=== PATIENT | female | born 1990 | race Caucasian/White ===

== ENCOUNTER 2024-01-19 07:30 | Emergency (ER) | payer SELFPAY ==
[2024-01-19 07:36] VITALS: BP 140/92; PULSE 98; TEMP 36.6; O2SAT 97; BMI 35.7
--- NOTE | 2024-01-19 07:44 | XR_ITS ---
[facility] [id number] Patient Name: MARIEL NEWMAN MRN: [id number] date: 1990 Sex: F Assigned Patient Location: ED.MAIN Current Patient Location: ED.MAIN Accession/Order Number: [id number] Exam Date: 01/19/2024 08:11 Report Date: 01/19/2024 08:42 At the request of: YAQUELIN BARRIENTOS Procedure: XR tibia fibula RT 2V EXAM: XR tibia fibula RT 2V HISTORY: Right lower leg pain; felt a popping sensation and developed calf pain stepping onto a sidewalk. COMPARISON: None. TECHNIQUE: 2 PA and 2 lateral views of the right tibia/fibula performed. FINDINGS: The bony alignment and mineralization are within normal limits. There is no fracture. The knee joint is unremarkable. There is a small enthesophyte at the calcaneal attachment of the Achilles tendon. The ankle joint is otherwise unremarkable. There is soft tissue prominence along the posterior aspect of the proximal right lower leg. Correlate with clinical findings. XR/XR tibia fibula RT 2V IMPRESSION: There is no acute fracture or malalignment. There is soft tissue prominence along the posterior aspect of the proximal right lower leg. Correlate with clinical findings. Electronically authenticated by: JAMES PEREZ Date: 01/19/2024 08:42
--- NOTE | 2024-01-19 07:50 | ED_ITS ---
HPI HPI - Extremity Injury (Lower) General Chief Complaint: Extremity Injury, Lower Stated Complaint: LOWER EXTREMITY INJURY Time Seen by Provider: 01/19/24 07:33 Source: patient Mode of arrival: Wheelchair History of Present Illness HPI Narrative: 33-year-old female presents for pain in her right lower leg. Just before coming into the emergency department she stepped up onto a step and felt a popping sensation on the upper calf area. Her knee and ankle do not hurt and she has no pain in the Achilles area. She did not fall. Related Data Home Medications ?Medication ?Instructions ?Recorded ?Confirmed gabapentin 300 mg capsule 300 mg PO BID 01/19/24 01/19/24 Previous Rx's ?Medication ?Instructions ?Recorded acetaminophen 300 mg-codeine 30 mg 1 tab PO Q6H PRN pain 5 days #20 01/19/24 tablet tabs ibuprofen 800 mg tablet 800 mg PO Q8H PRN pain #20 tabs 01/19/24 Allergies Allergy/AdvReac Type Severity Reaction Status Date / Time No Known Drug Allergies Allergy Verified 01/19/24 07:40 Opioid HPI Opioid Management Most Recent Pain and Opioid Data: Last MAY Pain Assessment 01/19/24 08:25 Review of Systems ROS Narrative A ten point review of systems is negative except as noted above. PFSH PFSH Social History Little interest or pleasure in doing things: not at all Feeling down, depressed, or hopeless: not at all Exam Narrative Exam Narrative: Nurses note and vital signs reviewed and patient is not hypoxic. General: The patient is lying on her side. Her hips and knees are flexed. Skin: Warm, dry, no pallor noted. There is no rash noted. Head: Normocephalic, atraumatic Eye: Normal conjunctiva, no drainage Ears, Nose, Mouth, and Throat: oral mucosa is moist. Nares patent. Cardiovascular: Regular Rate and Rhythm Respiratory: Patient is in no distress, no accessory muscle use, lungs are clear to auscultation, no wheezing, rales or rhonchi Back: non-tender GI: Nontender Musculoskeletal: The right knee is nontender. The right ankle is nontender and the Achilles tendon is intact and no tenderness in that area. She has no swelling in the calf area nor any bruising or rash or abrasions. She has tenderness in the upper calf region and there is no deformity noted. Neurological: Alert and oriented Psychiatric: Cooperative Constitutional Vital Signs, click to edit/add: Last Vital Signs Temp 98 F 01/19/24 07:36 Pulse 98 H 01/19/24 07:36 Resp 22 H 01/19/24 07:36 BP 140/92 H 01/19/24 07:36 Pulse Ox 97 01/19/24 07:36 Course Vital Signs Vital signs: Vital Signs Temperature 98 F 01/19/24 07:36 Pulse Rate 98 H 01/19/24 07:36 Respiratory Rate 22 H 01/19/24 07:36 Blood Pressure 140/92 H 01/19/24 07:36 Pulse Oximetry 97 01/19/24 07:36 Temperature 98 F 01/19/24 07:36 Pulse Rate 98 H 01/19/24 07:36 Respiratory Rate 22 H 01/19/24 07:36 Blood Pressure 140/92 H 01/19/24 07:36 Pulse Oximetry 97 01/19/24 07:36 MDM - Extremity Injury (Lower) MDM Narrative Medical decision making narrative: X-ray of the lower leg on my interpretation shows no acute findings. Roni wrap applied and application checked by me and found to be appropriate, she is neurovascularly intact. She is placed on crutches and orthopedic appointment is made for January 20 at 11:[address] Ansari. She was provided pain medication, ibuprofen and Tylenol 3. Treatment diagnosis and follow-up were discussed with the patient. I have no clinical suspicion of DVT. Differential Diagnosis Differential diagnosis: Likely other (Fracture, muscle strain) Imaging Data Right tib-fib: My impression: No acute findings Discharge Plan Discharge Chief Complaint: Extremity Injury, Lower Clinical Impression: Leg pain, right Patient Disposition: Home, Self-Care Time of Disposition Decision: 08:39 Condition: Good Mode of Transportation: Private Vehicle Prescriptions / Home Meds: New acetaminophen-codeine 300-30 mg tablet 1 tab PO Q6H PRN (Reason: pain) 5 Days Qty: 20 0RF ibuprofen 800 mg tablet 800 mg PO Q8H PRN (Reason: pain) Qty: 20 0RF No Action gabapentin 300 mg capsule 300 mg PO BID Print Language: Andorran Instructions: Leg Pain (ED) Referrals: Magda Parson NP [Primary Care Provider] - 1 week Kedar Ansari MD [Physician] - 01/21/24 11:30 am
[2024-01-19 08:02] LABS: HCG Qualitative Urine* NEGATIVE (NEGATIVE); Internal Control Within Normal Limits
[2024-01-19] MEDS: KETOROLAC TROMETHAMINE 60 MG/2 ML VIAL IM (08:25)
== END 2024-01-19 09:03 | disposition home or self-care (01) ==
PROVIDERS: Emergency Provider Emergency Medicine; PCP Nurse Practitioner Family
DX: M79.661 Pain in right lower leg (principal)
CPT/HCPCS: 73590; 84703; 96372; 99284; J1885